=== PATIENT | female | born 1950 | race Caucasian/White ===

== ENCOUNTER 2023-02-05 11:49 | Emergency (ER) | payer MEDICARE, SELFPAY ==
[2023-02-05] VITALS (28 sets, daily range): BP systolic 125–172; BP diastolic 71–106; PULSE 73–100; RESP 12–31; TEMP 36.4–37.4; O2SAT 86–100; BMI 19.7
--- NOTE | 2023-02-05 | DI.RAD.S_ITS ---
PROCEDURE: XR PELVIS 1-2V INDICATIONS: trauma fall from 10 feet TECHNIQUE: 1 view(s) of the pelvis acquired. COMPARISON: None. FINDINGS: Bones: Displaced fractures of the right pubic ring. Soft tissues: Visualized bowel gas pattern is normal. No suspicious soft tissue calcifications. IMPRESSION: Displaced fractures of the right pubic ring. Dictated by: Javier Riley M.D. on 02/05/2023 at 12:25 Approved by: Javier Riley M.D. on 02/05/2023 at 12:25
--- NOTE | 2023-02-05 | DI.RAD.S_ITS ---
PROCEDURE: XR CHEST 1V INDICATIONS: trauma TECHNIQUE: One view of the chest was acquired. COMPARISON: None. FINDINGS: Surgical changes and devices: None. Lungs and pleura: Lungs are clear. No pleural effusions or pneumothorax. Mediastinum: Mediastinal contours appear normal. Heart size is normal. Bones and chest wall: No suspicious bony lesions. Overlying soft tissues appear unremarkable. IMPRESSION: No displaced fracture or pneumothorax. Dictated by: Javier Riley M.D. on 02/05/2023 at 12:24 Approved by: Javier Riley M.D. on 02/05/2023 at 12:25
--- NOTE | 2023-02-05 11:55 | DI.CT.S_ITS ---
PROCEDURE: CT FACIAL BONES WO CON INDICATIONS: trauma TECHNIQUE: Noncontrast 2.5 mm thick axial images acquired from the mandible through the frontal sinuses, with coronal and sagittal reformatting. For radiation dose reduction, the following was used: automated exposure control, adjustment of mA and/or kV according to patient size. COMPARISON: [facility], CT, CT HEAD/BRAIN WO CON, 02/05/2023, 12:05. FINDINGS: Image quality: Excellent. Bones and teeth: There is a comminuted inferior orbital wall fracture. No rectus muscle displacement. Mild fat herniation. There is comminuted mildly displaced lateral right maxillary sinus wall fracture. There is irregularity and thinning of the medial right maxillary wall also suggestive of fracture. There is a minimally displaced right zygomatic arch fracture. Minimally displaced fracture is noted at the lateral aspect of the right sphenoid. Nasal bones and septum are intact. Visualized portions of the mandible demonstrate no fractures or subluxation. Zygomatic arches are intact. Pterygoid plates are intact. Visualized portions of the skull base and auditory canals are intact. Sinuses: Right maxillary fracture as above. Fluid is present within the right maxillary sinus as well as scattered fluid in the ethmoid air cells. Mild fluid is noted in the right sphenoid sinus. Soft tissues: Prominent left facial/periorbital soft tissue hematoma. No enlarged lymph nodes. No soft tissue lacerations or debris. Vascular: Visualized vascular structures appear normal in the absence of contrast. Bony vascular foramina and canals are intact. IMPRESSION: Comminuted right inferior orbital wall fracture with fat herniation. No rectus muscle entrapment. Comminuted right maxillary sinus wall fracture with nondisplaced medial wall fracture. Maxillary sinus fluid is present. Mildly displaced right zygomatic arch fracture. Minimally displaced fracture at the lateral aspect of the right sphenoid. Prominent right periorbital and facial soft tissue edema/hematoma. Dictated by: Zulema Angela M.D. on 02/05/2023 at 12:39 Approved by: Zulema Angela M.D. on 02/05/2023 at 12:47
--- NOTE | 2023-02-05 11:59 | DI.CT.S_ITS ---
PROCEDURE: CT HEAD/BRAIN WO CON INDICATIONS: Trauma TECHNIQUE: Noncontrast 4.5 mm thick angled axial sections acquired from the foramen magnum to the vertex, with coronal and sagittal reformats. For radiation dose reduction, the following was used: automated exposure control, adjustment of mA and/or kV according to patient size. COMPARISON: None. FINDINGS: Image quality: Excellent. CSF spaces: Basal cisterns are patent. No extra-axial fluid collections. Ventricles are normal in size and shape. Brain: No midline shift. No intracranial masses or hemorrhage. Steiner-white matter interface is normal. Skull and face: Calvarium is intact. Displaced right facial bone fractures, with hemorrhagic products layering in the right maxillary sinus. Large anterior scalp hematoma. Sinuses: Visualized sinuses and mastoids are clear. IMPRESSION: No acute intracranial pathology. Extensive facial bone fractures. Please see dedicated facial bone CT. Dictated by: Javier Riley M.D. on 02/05/2023 at 12:27 Approved by: Javier Riley M.D. on 02/05/2023 at 12:29
--- NOTE | 2023-02-05 11:59 | DI.CT.S_ITS ---
PROCEDURE: CT CERVICAL SPINE WO CON INDICATIONS: Trauma TECHNIQUE: Noncontrast 3 mm thick sections acquired from the skull base to the T4 level. Sagittal and coronal reformats were then constructed. For radiation dose reduction, the following was used: automated exposure control, adjustment of mA and/or kV according to patient size. COMPARISON: None. FINDINGS: Image quality: Excellent. Bones: Extensive facial fractures not fully included in the field of view on current exam. No cervical fractures. Visualized superior ribs are intact. Multilevel degenerative change without visualized fracture. Soft tissues: Prevertebral soft tissues are normal in thickness. No paravertebral hematomas. No apical pneumothoraces. IMPRESSION: No cervical fracture. Multiple facial fracture. Please see CT facial bone report for further details. Dictated by: Zulema Angela M.D. on 02/05/2023 at 12:47 Approved by: Zulema Angela M.D. on 02/05/2023 at 12:48
--- NOTE | 2023-02-05 11:59 | DI.CT.S_ITS ---
PROCEDURE: CT CHEST ABD PEL W CON INDICATIONS: Trauma TECHNIQUE: After the administration of intravenous contrast, 5 mm thick sections acquired from the lung apices to the symphysis. 2.5 mm thick coronal and sagittal reformats were acquired. Additional 7 mm thick coronal maximum intensity projection (MIP) reformats acquired through the lungs. Optional 10-minute delayed imaging may be performed from the kidneys to the bladder. For radiation dose reduction, the following was used: automated exposure control, adjustment of mA and/or kV according to patient size. COMPARISON: None. FINDINGS: Image quality: Excellent. CHEST: Lungs: No pulmonary contusions or lacerations. No acute airspace opacities. No pneumothorax or hemothorax. Central and peripheral airways appear patent and normal in caliber. Mediastinum: No mediastinal hematomas. Heart size is enlarged. No pericardial effusion. Thoracic aorta and pulmonary arteries demonstrate normal size and enhancement. No mediastinal or hilar adenopathy. Esophagus is normal in caliber. Mild hiatal hiatal hernia. Chest wall: No rib fractures. No subcutaneous emphysema. No axillary or supraclavicular adenopathy. Thyroid gland demonstrates heterogeneous enlargement of the right lobe.. ABDOMEN: Solid organs: Liver is normal in size and enhancement, without lacerations. Gallbladder is unremarkable. Biliary system is non-dilated. Pancreas enhances normally, without transection. Spleen is normal in size and enhancement, without lacerations. No adrenal hematomas. Both kidneys enhance normally, without hydronephrosis or lacerations. Peritoneum and bowel: No free fluid or air. Unenhanced bowel loops demonstrate normal wall thickness and caliber. Nodes and vessels: No retroperitoneal or mesenteric adenopathy. Aorta and inferior vena cava are normal in size and enhancement. Miscellaneous: No ventral hernias. PELVIS: Genitourinary: Bladder wall thickness is normal. Miscellaneous: No inguinal hernias or adenopathy. There is subcutaneous fat stranding as well as a focus of hyperdensity measuring 7.9 x 1.4 cm along the lateral aspect of the right hip musculature, Hounsfield units 67. Bones: There is a comminuted mildly displaced right sacral fracture. Nondisplaced fracture of the right anterior acetabulum is present. Comminuted fracture with mild displacement of the inferior right pubic ramus. There is a comminuted fracture with mild displacement of the posterior lamina/origin of the spinous process at L5. IMPRESSION: No visualized acute traumatic visceral injury. Comminuted mildly displaced right sacral fracture. Nondisplaced right anterior acetabular fracture. Comminuted mildly displaced inferior right pubic ramus fracture. Comminuted fracture the posterior right lamina/origin of the spinous process at L5. Focus of hyperdensity along the lateral aspect of the right hip musculature with surrounding subcutaneous fat stranding. Overall appearance is most consistent with contusion and hematoma. No definitive source of active hemorrhagic extravasation is present. Enlarged right thyroid lobe. Thyroid ultrasound may be obtained as clinically gait for further evaluation on a nonemergent basis. Dictated by: Zulema Angela M.D. on 02/05/2023 at 12:48 Approved by: Zulema Angela M.D. on 02/05/2023 at 12:55
--- NOTE | 2023-02-05 12:08 | ED_ITS ---
HPI - Trauma General Chief Complaint: Trauma Stated Complaint: Fall Time Seen by Provider: 02/05/23 11:50 Source: EMS Mode of arrival: EMS History of Present Illness HPI narrative: 72-year-old female nonsmoker without chronic medical history presents by EMS as a modified trauma. She had been in her normal state of health and last evening was working in her barn attempting to transfer her when she fell 10-15 feet onto a hard surface. It is unclear she lost consciousness but she complains of head and facial injury as well as abdomen, pelvis and right hip pain. She laid there, on the ground for 10-12 hours until she was found by a friend or family member today. She does not take blood thinners. She has had no vomiting, denies midline neck pain. She has no chest pain, shortness of breath or cough. Related Data Home Medications Medication Instructions Recorded Confirmed amlodipine 5 mg tablet 5 mg PO QPM 02/05/23 02/05/23 Allergies Allergy/AdvReac Type Severity Reaction Status Date / Time Sulfa (Sulfonamide Allergy Verified 02/05/23 11:59 Antibiotics) Review of Systems Review of Systems Narrative: GENERAL: See HPI HEENT: See HPI RESPIRATORY: See HPI CARDIOVASCULAR: Denies chest pain, palpitations, orthopnea, edema, GASTROINTESTINAL: Denies nausea, vomiting, abdominal pain, diarrhea, constipation, melena. : Denies dysuria, frequency, incontinence, hematuria, urinary retention. MUSCULOSKELETAL: See HPI SKIN: Denies rash, skin lesions, or other NEUROLOGIC: See HPI PSYCHIATRIC: No concerning psychosocial issues. 12 point review of systems is negative except for those stated above Patient History Social History Smoking Status: Never smoker Smoking Status: Never smoker alcohol intake frequency: 0-2 drinks per day Substance Use Type: does not use Exam Narrative Exam Narrative: GENERAL: [72] year old patient appears stated age. Well-developed patient, in obvious distress, GCS 15 HEAD: Significant swelling and ecchymosis to right side of face including upper and lower lid, forehead, over zygoma and upper lip. No laceration or abrasion, no obvious depressed skull fracture EYES: Pupils equal round and reactive. Extraocular motions intact. No hyphema. Patient has notable right upper and lower lid swelling, however when lids are retracted she is able to see without difficulty No scleral icterus. No injection or drainage. ENT: Nose without bleeding, purulent drainage. No nasal septal hematoma Throat without erythema, tonsillar hypertrophy or exudate. Airway patent. No hemotympanum NECK: Trachea midline. Non tender, no step-offs or crepitance CARDIOVASCULAR: Regular rate and rhythm without murmurs, gallops, or rubs. RESPIRATORY: Clear to auscultation. Breath sounds equal bilaterally. No wheezes, rales, or rhonchi. GASTROINTESTINAL: Abdomen soft, suprapubic tenderness, nondistended. Bowel sounds present in all 4 quadrants EXTREMITIES: Significant pain on palpation of right hip, no obvious shortening or rotation, no numbness, tingling or weakness, distal CMS intact BACK: Nontender without deformity or crepitance. No flank tenderness. No step- offs, abrasions, contusions, abrasions NEURO: AOx3. SKIN: No rash or erythema of visible areas Initial Vital Signs Initial Vital Signs: Vital Signs Pulse Rate 87 02/05/23 11:54 Respiratory Rate 18 02/05/23 11:54 Blood Pressure 136/83 02/05/23 11:54 Pulse Oximetry 96 02/05/23 11:54 Oxygen Delivery Method Room Air 02/05/23 11:54 Course Orders Ordered: ED Orders 02/05/23 11:55 CT facial bones wo con Stat 02/05/23 11:59 CT cervical spine wo con Stat CT chest abd pel w con Stat CT head/brain wo con Stat EKG-12 Lead Stat 02/05/23 12:00 Complete Blood Count AUTO DIFF Stat Comprehensive Metabolic Panel Stat Ethanol (ETOH) Stat Lactate (Lactic Acid) Stat Lipase Stat PTT Partial Thromboplastin Surinder Stat Prothrombin Time INR Stat Troponin & CK Cardiac Panel Stat Type and Screen Stat 02/05/23 12:25 Urinalysis and Microscopic Stat Urine Drug Screen, Rapid Stat Discontinued Medications Diphtheria/Tetanus/Acell Pertussis (Tet,Diph,Pertuss(Acell),Vac/Pf 0.5 Ml Syringe) 0.5 ml IM .ONCE ONE Stop: 02/05/23 11:56 Last Admin: 02/05/23 13:40 Dose: 0.5 ml Hydromorphone HCl (Hydromorphone 0.5 Mg Inj) 0.5 mg IV NOW ONE Stop: 02/05/23 12:48 Last Admin: 02/05/23 13:45 Dose: 0.5 mg Cefazolin Sodium 1 gm/ Sodium (Chloride) 100 mls @ 200 mls/hr IV NOW ONE Stop: 02/05/23 13:31 Last Admin: 02/05/23 13:43 Dose: 200 mls/hr Ondansetron HCl (Ondansetron 4 Mg/2 Ml Inj) 4 mg IV NOW ONE Stop: 02/05/23 12:48 Last Admin: 02/05/23 13:41 Dose: 4 mg Consultations Consultation #1: [place] happy [place] Vital Signs Vital signs: Vital Signs - 8 hr 02/05/23 11:54 02/05/23 12:10 02/05/23 12:15 Temperature Pulse Rate 87 100 H Respiratory Rate 18 31 H Blood Pressure 136/83 172/106 H Pulse Oximetry 96 Oxygen Delivery Method Room Air Oxygen Flow Rate 02/05/23 12:15 02/05/23 12:20 02/05/23 12:25 Temperature Pulse Rate 92 H 85 Respiratory Rate 29 H 27 H Blood Pressure 157/77 H Pulse Oximetry 96 96 Oxygen Delivery Method Nasal Cannula Oxygen Flow Rate 02/05/23 12:25 02/05/23 12:30 02/05/23 12:30 Temperature 97.5 F L 97.7 F Pulse Rate 82 77 Respiratory Rate 26 H 23 Blood Pressure 144/73 H Pulse Oximetry 97 96 Oxygen Delivery Method Oxygen Flow Rate 02/05/23 12:35 02/05/23 12:35 02/05/23 12:40 Temperature 98.1 F Pulse Rate 78 Respiratory Rate 18 Blood Pressure 146/74 H 140/71 Pulse Oximetry 98 Oxygen Delivery Method Oxygen Flow Rate 02/05/23 12:40 02/05/23 12:45 02/05/23 12:45 Temperature 98.2 F 98.4 F Pulse Rate 77 79 Respiratory Rate 18 20 Blood Pressure 139/74 Pulse Oximetry 97 97 Oxygen Delivery Method Oxygen Flow Rate 02/05/23 12:50 02/05/23 12:50 02/05/23 12:55 Temperature 98.6 F Pulse Rate 76 Respiratory Rate 15 Blood Pressure 136/76 130/77 Pulse Oximetry 97 Oxygen Delivery Method Oxygen Flow Rate 02/05/23 12:55 Temperature 98.8 F Pulse Rate 80 Respiratory Rate 19 Blood Pressure Pulse Oximetry 97 Oxygen Delivery Method Nasal Cannula Oxygen Flow Rate 2 MDM - Trauma Lab Data 02/05/23 12:00 02/05/23 12:00 Labs: Lab Results 02/05/23 02/05/23 02/05/23 Range/Units 12:00 12:00 12:00 WBC 12.3 H (4.5-11.0) X10^3/uL RBC 3.52 L (4.0-5.2) X10^6/uL Hgb 10.7 L (12.0-16.0) g/dL Hct 30.9 L (36-46) % MCV 87.9 (80-100) fL MCH 30.4 (26-34) PG MCHC 34.6 (30-36) % RDW 12.5 (11.6-14.8) % Plt Count 217 (150-400) X10^3/uL Neut % (Auto) 87.7 H (50-75) % Lymph % (Auto) 4.8 L (25-40) % Trinity % (Auto) 7.3 (3-14) % Eos % (Auto) 0.0 L (2-4) % Baso % (Auto) 0.2 (0-2) % Neut # (Auto) 17100 H (3206-9814) /uL Lymph # (Auto) 600 L (0970-4207) /uL Trinity # (Auto) 900 (0-900) /uL Eos # (Auto) 0 (0-450) /uL Baso # (Auto) 0 (0-100) /uL PT 12.9 H (10.1-12.7) SECONDS INR 1.1 (0.9-1.3) APTT 27 (26-36) SECONDS Sodium (137-145) mmol/L Potassium (3.4-5.1) mmol/L Chloride (98-107) mmol/L Carbon Dioxide (22-32) mmol/L BUN (7-17) mg/dL Creatinine (0.52-1.04) mg/dL Estimated GFR (>60) mL/min BUN/Creatinine Ratio (6-22) Glucose (80-110) mg/dL Lactate (0.7-2.1) mmol/L Calcium (8.4-10.2) mg/dL Total Bilirubin (0.2-1.3) mg/dL AST (14-36) IU/L ALT (<35) IU/L Alkaline Phosphatase (38-126) U/L Total Creatine Kinase 1147 H (30-135) U/L CK-MB (CK-2) TNP CK-MB (CK-2) Rel Index TNP Troponin I < 0.012 (0.01-0.034) ng/mL Total Protein (6.3-8.2) g/dL Albumin (3.5-5.0) g/dL Globulin (1.7-4.1) g/dL Albumin/Globulin Ratio (1.0-2.8) Lipase (23-300) U/L Urine Color Urine Appearance Urine pH (4.5-8.0) Ur Specific [place] (1.000-1.035) Urine Protein (Negative) Urine Glucose (UA) (Negative) g/dL Urine Ketones (NEGATIVE) Urine Occult Blood (Negative) Urine Nitrate (Negative) Urine Bilirubin (NEGATIVE) Urine Urobilinogen (0.2) E.U./dL Ur Leukocyte Esterase (NEGATIVE) Urine RBC (0-5/HPF) Urine WBC (0-5/HPF) Ur Squamous Epith Cells (0-5/HPF) Urine Bacteria (None) Ur Culture Indicated? U Opiates 300ng/mL cut (Negative) Ur Oxycodone Screen (Negative) Urine Methadone Screen (Negative) Ur Barbiturates Screen (Negative) U Tricyclic Antidepress (Negative) Ur Phencyclidine Scrn (Negative) Ur Amphetamines Screen (Negative) U Methamphetamines Scrn (Negative) Ur MDMA Scrn (Ecstasy) (Negative) U Benzodiazepines Scrn (Negative) Urine Cocaine Screen (Negative) U Marijuana (THC) Screen (Negative) Ethyl Alcohol ( - 10) mg/dL Blood Type Antibody Screen 02/05/23 02/05/23 02/05/23 Range/Units 12:00 12:00 12:00 WBC (4.5-11.0) X10^3/uL RBC (4.0-5.2) X10^6/uL Hgb (12.0-16.0) g/dL Hct (36-46) % MCV (80-100) fL MCH (26-34) PG MCHC (30-36) % RDW (11.6-14.8) % Plt Count (150-400) X10^3/uL Neut % (Auto) (50-75) % Lymph % (Auto) (25-40) % Trinity % (Auto) (3-14) % Eos % (Auto) (2-4) % Baso % (Auto) (0-2) % Neut # (Auto) (0280-2765) /uL Lymph # (Auto) (5813-1389) /uL Trinity # (Auto) (0-900) /uL Eos # (Auto) (0-450) /uL Baso # (Auto) (0-100) /uL PT (10.1-12.7) SECONDS INR (0.9-1.3) APTT (26-36) SECONDS Sodium 134 L (137-145) mmol/L Potassium 3.9 (3.4-5.1) mmol/L Chloride 107 (98-107) mmol/L Carbon Dioxide 22 (22-32) mmol/L BUN 22 H (7-17) mg/dL Creatinine 0.48 L (0.52-1.04) mg/dL Estimated GFR > 60 (>60) mL/min BUN/Creatinine Ratio 45.8 H (6-22) Glucose 146 H (80-110) mg/dL Lactate 2.3 H (0.7-2.1) mmol/L Calcium 7.9 L (8.4-10.2) mg/dL Total Bilirubin 1.5 H (0.2-1.3) mg/dL AST 72 H (14-36) IU/L ALT 41 H (<35) IU/L Alkaline Phosphatase 57 (38-126) U/L Total Creatine Kinase (30-135) U/L CK-MB (CK-2) CK-MB (CK-2) Rel Index Troponin I (0.01-0.034) ng/mL Total Protein 5.5 L (6.3-8.2) g/dL Albumin 3.2 L (3.5-5.0) g/dL Globulin 2.3 (1.7-4.1) g/dL Albumin/Globulin Ratio 1.4 (1.0-2.8) Lipase 54 (23-300) U/L Urine Color Urine Appearance Urine pH (4.5-8.0) Ur Specific [place] (1.000-1.035) Urine Protein (Negative) Urine Glucose (UA) (Negative) g/dL Urine Ketones (NEGATIVE) Urine Occult Blood (Negative) Urine Nitrate (Negative) Urine Bilirubin (NEGATIVE) Urine Urobilinogen (0.2) E.U./dL Ur Leukocyte Esterase (NEGATIVE) Urine RBC (0-5/HPF) Urine WBC (0-5/HPF) Ur Squamous Epith Cells (0-5/HPF) Urine Bacteria (None) Ur Culture Indicated? U Opiates 300ng/mL cut (Negative) Ur Oxycodone Screen (Negative) Urine Methadone Screen (Negative) Ur Barbiturates Screen (Negative) U Tricyclic Antidepress (Negative) Ur Phencyclidine Scrn (Negative) Ur Amphetamines Screen (Negative) U Methamphetamines Scrn (Negative) Ur MDMA Scrn (Ecstasy) (Negative) U Benzodiazepines Scrn (Negative) Urine Cocaine Screen (Negative) U Marijuana (THC) Screen (Negative) Ethyl Alcohol < 10 ( - 10) mg/dL Blood Type O Positive Antibody Screen Negative 02/05/23 02/05/23 Range/Units 12:25 12:25 WBC (4.5-11.0) X10^3/uL RBC (4.0-5.2) X10^6/uL Hgb (12.0-16.0) g/dL Hct (36-46) % MCV (80-100) fL MCH (26-34) PG MCHC (30-36) % RDW (11.6-14.8) % Plt Count (150-400) X10^3/uL Neut % (Auto) (50-75) % Lymph % (Auto) (25-40) % Trinity % (Auto) (3-14) % Eos % (Auto) (2-4) % Baso % (Auto) (0-2) % Neut # (Auto) (1156-2389) /uL Lymph # (Auto) (9379-0745) /uL Trinity # (Auto) (0-900) /uL Eos # (Auto) (0-450) /uL Baso # (Auto) (0-100) /uL PT (10.1-12.7) SECONDS INR (0.9-1.3) APTT (26-36) SECONDS Sodium (137-145) mmol/L Potassium (3.4-5.1) mmol/L Chloride (98-107) mmol/L Carbon Dioxide (22-32) mmol/L BUN (7-17) mg/dL Creatinine (0.52-1.04) mg/dL Estimated GFR (>60) mL/min BUN/Creatinine Ratio (6-22) Glucose (80-110) mg/dL Lactate (0.7-2.1) mmol/L Calcium (8.4-10.2) mg/dL Total Bilirubin (0.2-1.3) mg/dL AST (14-36) IU/L ALT (<35) IU/L Alkaline Phosphatase (38-126) U/L Total Creatine Kinase (30-135) U/L CK-MB (CK-2) CK-MB (CK-2) Rel Index Troponin I (0.01-0.034) ng/mL Total Protein (6.3-8.2) g/dL Albumin (3.5-5.0) g/dL Globulin (1.7-4.1) g/dL Albumin/Globulin Ratio (1.0-2.8) Lipase (23-300) U/L Urine Color Yellow Urine Appearance Sl cloudy Urine pH 7.0 (4.5-8.0) Ur Specific [place] 1.015 (1.000-1.035) Urine Protein 1+ H (Negative) Urine Glucose (UA) Negative (Negative) g/dL Urine Ketones Negative (NEGATIVE) Urine Occult Blood 3+ H (Negative) Urine Nitrate Negative (Negative) Urine Bilirubin Negative (NEGATIVE) Urine Urobilinogen 0.2 (0.2) E.U./dL Ur Leukocyte Esterase Negative (NEGATIVE) Urine RBC 30-100/hpf H (0-5/HPF) Urine WBC 1-5/hpf (0-5/HPF) Ur Squamous Epith Cells None seen (0-5/HPF) Urine Bacteria None seen (None) Ur Culture Indicated? Cult not indicated U Opiates 300ng/mL cut Negative (Negative) Ur Oxycodone Screen Negative (Negative) Urine Methadone Screen Negative (Negative) Ur Barbiturates Screen Negative (Negative) U Tricyclic Antidepress Negative (Negative) Ur Phencyclidine Scrn Negative (Negative) Ur Amphetamines Screen Negative (Negative) U Methamphetamines Scrn Negative (Negative) Ur MDMA Scrn (Ecstasy) Negative (Negative) U Benzodiazepines Scrn Negative (Negative) Urine Cocaine Screen Negative (Negative) U Marijuana (THC) Screen Negative (Negative) Ethyl Alcohol ( - 10) mg/dL Blood Type Antibody Screen MDM Narrative Medical decision making narrative: 72-year-old female with fall from 10-15 feet and multiple injury suffered as a consequence. She is alert and oriented, GCS is 15, guarding her airway and hemodynamically stable. Multiple right-sided facial fractures which appear to be closed, clinically and radiographically there is no evidence of entrapment of extraocular muscles. No evidence of hyphema and vision is fully intact. Patient has no trouble breathing, denies chest pain or shortness of breath. She has no abdominal pain. Extensive pelvic and hip pain on palpation with a large lateral hematoma. This also was closed and neurovascularly intact. Imaging demonstrates complex pelvic fractures including involvement of the acetabulum. Patient requires transport to [facility] given the complexity of her injuries. Patient's pain has been controlled, tetanus updated, Ancef administered. [employer] providing transport given long duration and potential for rapid deterioration. Patient understands and agrees with the diagnosis and plan. We thank [facility] and [facility] for their invo lvement and assistance caring for Ms. Watson Critical Care Time Critical Care Time Critical Care Time: Yes Total Critical Care Time: 30 Attestation: The high probability of a clinically significant, sudden or life threatening deterioration of the [CV] system(s) required my full and direct attention, intervention and personal management. The aggregate critical care time was [30] minutes. This time is in addition to time spent performing reported procedures but includes the following: [x] Data Review and interpretation [x] Patient assessment and monitoring of vital signs [x] Documentation [x] Medication orders and management Discharge Plan Departure Patient Disposition: [facility] Clinical Impression: Acetabulum fracture, right, Closed fracture of pubic ramus, Closed sacral fracture, Hematoma of right lower extremity, Fracture of spinous process of lumbar vertebra, Orbital fracture, Closed fracture of maxillary sinus, Zygomatic fracture, Closed fracture of sphenoid bone, Traumatic rhabdomyolysis Prescriptions: No Action amlodipine 5 mg Tablet 5 mg PO QPM
[2023-02-05 12:21] LABS: Add Manual Diff / Slide Review NO; Basophils Absolute Auto 0 /uL (0-100); Eosinophils Absolute Auto 0 /uL (0-450); Hemoglobin 10.7 g/dL (12.0-16.0); Mean Corpuscular HGB Conc 34.6 % (30-36); Monocytes Absolute Auto 900 /uL (0-900); Monocytes Percent Auto 7.3 % (3-14)
[2023-02-05 12:43] LABS: Alanine Aminotransferase 41 IU/L (<35); Albumin 3.2 g/dL (3.5-5.0); Albumin Globulin Ratio 1.4 (1.0-2.8); Alkaline Phosphatase 57 U/L (38-126); Aspartate Aminotransferase 72 IU/L (14-36); BUN Creatinine Ratio 45.8 (6-22); Bilirubin Total 1.5 mg/dL (0.2-1.3); Blood Urea Nitrogen 22 mg/dL (7-17); Calcium 7.9 mg/dL (8.4-10.2); Carbon Dioxide 22 mmol/L (22-32); Chloride 107 mmol/L (98-107); Creatine Kinase 1147 U/L (30-135); Estimated Glomerular Filt Rate > 60 mL/min (>60); Ethanol (ETOH) < 10 mg/dL; Globulin 2.3 g/dL (1.7-4.1); Glucose 146 mg/dL (80-110); HEMOLYSIS 48 (0-50); INR 1.1 (0.9-1.3); Lactate (Lactic Acid) 2.3 mmol/L (0.7-2.1); Lipase 54 U/L (23-300); Potassium 3.9 mmol/L (3.4-5.1); Prothrombin Time 12.9 SECONDS (10.1-12.7); Sodium 134 mmol/L (137-145); Total Protein 5.5 g/dL (6.3-8.2)
[2023-02-05 12:43] LABS: Appearance Urine UA SL CLOUDY; Bilirubin Urine UA NEGATIVE (NEGATIVE); Color Urine UA YELLOW; Glucose Urine UA NEGATIVE (Negative); Ketones Urine UA NEGATIVE (NEGATIVE); Leukocyte Esterase Urine UA NEGATIVE (NEGATIVE); Nitrite Urine UA NEGATIVE (Negative); Occult Blood Urine UA 3+ (Negative); Protein Urine UA 1+ (Negative); Specific Gravity Urine UA 1.015 (1.000-1.035); Urobilinogen Urine UA 0.2 E.U./dL (0.2)
[2023-02-05 12:46] LABS: PTT Partial Thromboplastin Tim 27 SECONDS (26-36)
[2023-02-05 12:48] LABS: UR Morphine/Opiate cutoff 300 Negative (Negative); Ur Creatinine Normal (Normal); Ur Specific Gravity Normal (Normal); Urine Amphetamines Negative (Negative); Urine Barbiturates Negative (Negative); Urine Benzodiazepines Negative (Negative); Urine Cocaine Negative (Negative); Urine MDMA Negative (Negative); Urine Methadone Negative (Negative); Urine Methamphetamines Negative (Negative); Urine Oxycodone Negative (Negative); Urine Phencyclidine Negative (Negative); Urine Tetrahydrocannabinol Negative (Negative); Urine Tricyclic Antidepressant Negative (Negative); Urine pH Normal (Normal)
[2023-02-05 12:54] LABS: Troponin I < 0.012 ng/mL (0.01-0.034)
[2023-02-05 12:54] LABS: Bacteria Urine None Seen; Culture Indicated Urine Cult Not Indicated; RBC Urine 30-100/HPF (0-5/HPF); Squamous Epithelial Cell Urine None Seen (0-5/HPF); WBC Urine 1-5/HPF (0-5/HPF)
[2023-02-05 13:00] LABS: Basophils Percent Auto 0.2 % (0-2); Hematocrit 30.9 % (36-46); Lymphocytes Absolute Auto 600 /uL (1100-4500); Lymphocytes Percent Auto 4.8 % (25-40); Mean Corpuscular Hemoglobin 30.4 PG (26-34); Mean Corpuscular Volume 87.9 fL (80-100); Neutrophils Absolute Auto 10800 /uL (1500-7000); Neutrophils Percent Auto 87.7 % (50-75); Platelet Count 217 X10^3/uL (150-400); Red Blood Cell Count 3.52 X10^6/uL (4.0-5.2); Red Cell Distribution Width 12.5 % (11.6-14.8); White Blood Cell Count 12.3 X10^3/uL (4.5-11.0)
[2023-02-05] MEDS: TET,DIPH,PERTUSS(ACELL),VAC/PF 0.5 ML SYRINGE IM (13:40)
[2023-02-05] MEDS: ONDANSETRON 4 MG/2 ML INJ IV (13:41)
[2023-02-05] MEDS: CEFAZOLIN VIAL 1 GM in SODIUM CHLORIDE 0.9% 100 ML IV (13:43)
[2023-02-05] MEDS: HYDROMORPHONE 0.5 MG INJ IV (13:45)
[2023-02-05 14:14] LABS: Reflexed Lactate in 2 Hours Y
--- NOTE | 2023-02-05 15:39 | PC.NURSE ---
Pt's belongings, jacket, clothing and boots sent w/ [employer]. pt states her wallet, keys and cell phone are all at home. Neighbors contacted to care for pt's animals by [employer].
== END 2023-02-05 14:26 | disposition short-term general hospital (02) ==
PROVIDERS: Emergency Provider Emergency Medicine
DX: S32.401A Unspecified fracture of right acetabulum, initial encounter for closed fracture (principal); S32.599A Other specified fracture of unspecified pubis, initial encounter for closed fracture; S32.10XA Unspecified fracture of sacrum, initial encounter for closed fracture; S80.11XA Contusion of right lower leg, initial encounter; S32.009A Unspecified fracture of unspecified lumbar vertebra, initial encounter for closed fracture; S02.19XA Other fracture of base of skull, initial encounter for closed fracture; T79.6XXA Traumatic ischemia of muscle, initial encounter; S02.40EA Zygomatic fracture, right side, initial encounter for closed fracture; S02.40CA Maxillary fracture, right side, initial encounter for closed fracture; S02.31XA Fracture of orbital floor, right side, initial encounter for closed fracture; W17.89XA Other fall from one level to another, initial encounter; Z23 Encounter for immunization
CPT/HCPCS: 36415; 70450; 70486; 71045; 71260; 72125; 72170; 74177; 80053; 80305; 80320; 81001; 82550; 83605; 83690; 84484; 85025; 85610; 85730; 86850; 86900; 86901; 90471; 93005; 96365; 96375; 99285; 99291; 90715; G0390; J0690; J1170; J2405; Q9967